=== PATIENT | male | born 1960 | race Caucasian/White ===

== ENCOUNTER 2019-03-21 11:01 | Observation (INO) ==
--- NOTE | 2019-03-07 10:07 | PAT Medication Instructions ---
Medication Instructions Date of Service March 07, 2019 Home Medications Medication Instructions Recorded diclofenac sodium 75 mg 75 mg PO BID PRN #60 tab 02/04/19 tablet,delayed release atorvastatin 20 mg tablet 20 mg PO QAM diclofenac sodium 75 mg tablet,delayed release 75 mg PO BID PRN lisinopril 10 mg tablet 10 mg PO QAM ASK your surgeon for instructions diclofenac sodium 75 mg tablet,delayed release 75 mg PO BID PRN DO NOT take the morning of surgery lisinopril 10 mg tablet 10 mg PO QAM Take morning of surgery With a small sip of water, OTHERWISE NOTHING TO EAT OR DRINK AFTER MIDNIGHT: atorvastatin 20 mg tablet 20 mg PO QAM Other Notes If you have any questions please call us at [phone] or [phone] or [phone] or [phone]
--- NOTE | 2019-03-07 10:21 | Anesthesiology Consultation ---
Date of Service March 07, 2019 Assessment & Plan (1) Encounter for pre-operative examination: Chart Review Chart Review: Pending: Refer to Additional Notes / Consult section (awaiting PAT testing) History Surgery Operation Date: 03/21/19 13:00 Proposed Procedures p Right Arthroplsty Unicompartment Versus - Rogers Bui MD s Total Knee Arthroplasty - Rogers Bui MD Height/Weight Height: 5 ft 10.5 in Weight: 82 kg Allergies Allergy/AdvReac Type Severity Reaction Status Date / Time No Known Allergies Allergy Verified 03/07/19 09:54 Medications Home Medications Medication Instructions Recorded Confirmed Last Taken atorvastatin 20 mg tablet 20 mg PO QAM 02/04/19 03/07/19 Unknown diclofenac sodium 75 mg 75 mg PO BID PRN #60 tab 02/04/19 03/07/19 Unknown tablet,delayed release lisinopril 10 mg tablet 10 mg PO QAM 02/04/19 03/07/19 Unknown Past Medical History Medical History Hypertension Osteoarthritis Exercise / Class Metabolic Activity II 4-5 Yardwork/Stairs/Walk up hill Past Family History Family History Father FHx: lung cancer Family/Other FHx: cancer Grandmother (Maternal) Family history of diabetes mellitus Past Surgical History Surgical History H/O excision of dermoid cyst nose Social History Smoking Status: Current every day smoker tobacco type: cigarettes Smoking cigarettes per day: 30 cigarettes x 30 years Do You Dip or Chew Tobacco: No Hx Alcohol Use: Yes Alcohol type: beer alcohol intake frequency: 3 or more drinks per day Hx Substance Use: No substance use type: does not use Physical Exam ENMT Mouth: + dental restorations Thyromental Distance: > or= 3.5 Finger Breadths Mallampati Class: II Neck normal visual inspection Respiratory normal respiratory effort Auscultation: lungs clear to auscultation bilaterally Cardiovascular Rate/Rhythm: regular rate and regular rhythm
--- NOTE | 2019-03-07 11:03 | XRay Report ---
XR chest Pre-admission PA/Lat HISTORY: 58 years-old Male pat preoperative exam. No acute chest complaints COMPARISON: None available TECHNIQUE: PA and lateral views of the chest FINDINGS: Cardiomediastinal and hilar silhouettes are within normal limits. There is no pneumothorax, pleural e ffusion, focal airspace consolidation or overt pulmonary edema. Lungs are mildly hyperinflated. The i nferior left costophrenic angle is partially excluded from the [id number] on the PA view. Bones of the chest appear grossly intact. IMPRESSION: No acute process. ACT 112: Negative or not required by law. The above report was generated using voice recognition software. It may contain grammatical, syntax o r spelling errors. Electronically signed by: Zion Rahman M.D. 03/07/2019 11:02 AM
[2019-03-07 12:44] LABS: Basophils # (auto) 0.06 K/uL (0-0.2); Basophils % (auto) 0.7 %; Eosinophils # (auto) 0.06 K/uL (0-0.5); Eosinophils % (auto) 0.7 %; Hematocrit (blood only) 42.3 % (42-52); Hemoglobin 14.8 g/dL (14.0-18.0); Lymphocytes # (auto) 1.77 K/uL (1.2-3.4); Lymphocytes % (auto) 21.4 %; Mean Corpuscular Hemoglobin 33.3 pg (25-34); Mean Corpuscular Volume 95.3 fL (80-100); Mean Platelet Volume 12.3 fL (7.4-10.4); Monocytes # (auto) 0.66 K/uL (0.11-0.59); Neutrophils # (auto) 5.74 K/uL (1.4-6.5); Neutrophils % (auto) 69.2 %; Platelet Count 160 K/uL (130-400); RDW Coefficient of Variation 13.2 % (11.5-14.5); RDW Standard Deviation 46.1 fL (36.4-46.3); Red Blood Count 4.44 M/uL (4.7-6.1); White Blood Count 8.29 K/uL (4.8-10.8)
[2019-03-07 12:47] LABS: INR 1.1 (0.9-1.1); Partial Thromboplastin Ratio 1.1; Partial Thromboplastin Time 29.1 Seconds (21.0-31.0); Prothrombin Time 10.8 Seconds (9.0-12.0)
[2019-03-07 13:03] LABS: BUN Creatinine Ratio 17.7 (10-20); Calcium 9.1 mg/dl (8.5-10.1); Creatinine Clr Calc Pharmacy 79.9 ml/min; Est GFR (African American) 88.8; Est GFR (Non-African American) 76.7; Potassium 5.3 mmol/L (3.5-5.1)
--- NOTE | 2019-03-07 16:02 | Electrocardiogram Report ---
Test Reason : Blood Pressure : / mmHG Vent. Rate : 098 BPM Atrial Rate : 098 BPM P-R Int : 142 ms QRS Dur : 082 ms QT Int : 322 ms P-R-T Axes : 076 081 063 degrees QTc Int : 411 ms Normal sinus rhythm Peaked T waves(consider ischemia,hyperkalemia,etc.) Otherwise normal ECG No previous ECGs available Confirmed by Rashad Edmond ([id number]) on 03/07/2019 4:02:28 PM Referred By: Rogers Bui Confirmed By:Rashad Edmond
[~2019-03-21 11:01] MED LIST: ACETAMINOPHEN 500 MG TAB PO SCH; BUPIVACAINE 0.5 % 5 MG/1 ML PF 10ML VIAL ONE; BUPIVACAINE LIPOSOME/PF 266 MG, BUPIVACAINE/EPINEPHRINE 50 ML, SODIUM CHLORIDE 0.9% 30 ... INFIL SCH; CEFAZOLIN 2000MG 2,000 MG/15 ML SYR IV SCH; FAMOTIDINE 20 MG TAB PO SCH; GABAPENTIN 600 MG DOSE PO SCH; LR 500ML BOLUS, THEN 15ML/HR IV SCH; LR 60ML/HR IV SCH; METOCLOPRAMIDE HCL 10 MG TABLET PO SCH; ROPIVACAINE 0.5% 5 MG/ML 30 ML VIAL ONE; SCOPOLAMINE 1.5 MG TDSY TD SCH; TRANEXAMIC ACID 1,000 MG **IV Intra-op IV SCH
[2019-03-21 11:52] LABS: BUN Creatinine Ratio 9.4 (10-20); Creatinine Clr Calc Pharmacy 81.4 ml/min; Est GFR (African American) 90.9; Est GFR (Non-African American) 78.4; Potassium 4.1 mmol/L (3.5-5.1)
[2019-03-21] MEDS ORDERED: MIDAZOLAM HCL 1 MG/ML 2ML VIAL ONE ×2 (12:41)
[2019-03-21] MEDS ORDERED: LIDOCAINE HCL 2% 2 ML VIAL/AMP(20MG/ML) INFIL ONE (12:41)
[2019-03-21] MEDS ORDERED: PROPOFOL IV EMULSION 10 MG/ML 20 ML VIAL IV ONE ×2 (12:41→14:56)
[2019-03-21] MEDS ORDERED: fentaNYL citrate 100 MCG/2 ML VIAL ONE ×2 (12:42→14:45)
[2019-03-21] MEDS ORDERED: BUPIVACAINE LIPOSOME 1.3% 266 MG/20 ML VIAL ONE (13:07)
[2019-03-21] MEDS ORDERED: SODIUM CHLORIDE 0.9% PF 50 ML VIAL ONE (13:07)
[2019-03-21] MEDS ORDERED: BUPIVACAINE/EPINEPHRINE 0.25% 1:200,000 30 ML VIAL ONE ×2 (13:07→13:12)
[2019-03-21] MEDS ORDERED: BACITRACIN INJ 50,000 UNIT VIAL ONE (13:08)
[2019-03-21] MEDS ORDERED: ATROPINE SULFATE 0.1 MG/ML 10ML SYR IV PRN (13:13)
[2019-03-21] MEDS ORDERED: ePHEDrine sulfate 50 MG/ML AMP IV PRN (13:13)
--- NOTE | 2019-03-21 13:32 | History & Physical Bridge Note ---
Date of Service March 21, 2019 History & Physical Bridge Note I have examined the patient, reviewed the History & Physical and in the interval since the performance of the History & Physical I have noted the following changes of clinical significance: no changes noted
--- NOTE | 2019-03-21 15:37 | Post Operative Brief Note ---
PG Immediate Post Op with CF Date of Surgery March 21, 2019 Pre & Post Diagnosis Operation Date: 03/21/19 13:00 Pre-Op Diagnosis: RIGHT KNEE DEGENERATIVE JOINT DISEASE W/KNEE PAIN Post-Op Diagnosis: RIGHT KNEE DEGENERATIVE JOINT DISEASE W/KNEE PAIN I identified the patient and participated in the time-out.: Yes Procedure Operation Date: 03/21/19 13:00 Actual Procedures p Right Arthroplasty Unicompartment Versus(Right) - Rogers Bui MD s Total Knee Arthroplasty - Rogers Bui MD Surgeon Rogers Bui MD Telesales Agent Karina, PAC Estimated Blood Loss 10 Findings Consistent with Post-Op Diagnosis Fluids 1800 cc Specimens Specimen Description: A. Right Knee bone and tissue Drains Earl Catheter Anesthesia Type Spinal MAC Complications none Disposition Accompanied Patient To Recovery: No Disposition: Recovery Room
--- NOTE | 2019-03-21 16:02 | XRay Report ---
XR knee RT 1 or 2V routine HISTORY: 58 years-old Male Surgical Post Op chronic right knee pain COMPARISON: Knee radiographs 02/04/2019 TECHNIQUE: 2 views the right knee FINDINGS: Medial compartment hemiarthroplasty changes of the right knee demonstrates satisfactory alignment. Th ere is no acute fracture or retained foreign body identified. Expected postsurgical soft tissue swell ing and deep tissue air about the right knee with anterior midline skin ck. Surgical drainage ca theter also noted. IMPRESSION: Expected postoperative changes of the knee with medial compartment hemiarthroplasty. ACT 112: Negative or not required by law. The above report was generated using voice recognition software. It may contain grammatical, syntax o r spelling errors. Electronically signed by: Zion Rahman M.D. 03/21/2019 4:01 PM
--- NOTE | 2019-03-21 17:28 | Operative Report ---
Post Operative Report Pre & Post Diagnosis Operation Date: 03/21/19 13:00 Pre-Op Diagnosis: RIGHT KNEE DEGENERATIVE JOINT DISEASE W/KNEE PAIN Post-Op Diagnosis: RIGHT KNEE DEGENERATIVE JOINT DISEASE W/KNEE PAIN I identified the patient and participated in the time-out.: Yes Procedure Operation Date: 03/21/19 13:00 Actual Procedures Right Knee Arthroplasty Ida Unicompartment (Right) - Rogers Bui MD Surgeon Rogers Bui MD Dump Truck Operator Karina, PAC Estimated Blood Loss 10 Findings Consistent with Post-Op Diagnosis Operative findings revealed advanced right knee medial compartment DJD with extensive grade 4 [id number]-dp-[id number] disease of the medial femoral condyle and medial tibial plateau. He had a moderate-sized joint effusion with a varus deformity to his knee. The lateral and patellofemoral compartments were very nicely preserved. The ACL was intact. Fluids 1800 cc. Specimens Right knee sent for pathology. Drains None. Anesthesia Type Spinal MAC Complications none Disposition Accompanied Patient To Recovery: No Disposition: Recovery Room Indications Patient is a 58-year-old gentleman has had a 2-year history of gradually progressive increasing right medial knee pain and discomfort. He is been through extensive conservative treatment clinic various medicines as well as injection which provided very temporary relief. X-rays showed advanced medial compartment arthritis. This is confirmed by MRI with extensive marrow changes the medial femoral condyle medial tibial plateau. The rest of his knee joint looked pretty well-preserved. He elected to see the right partial knee replacement. Description of Procedure Operative implants consist of: 1. Biomet Ida size medium femoral component. 2. Biomet Ida right medial size D tibial tray. 3. 5 mm mobile-bearing insert. Patient is taken to the operating room identified and placed on the operating table supine position protectors were properly padded. IV antibiotics were provided by anesthesia team. A spinal anesthetic been implemented holding area. Earl catheter was placed in sterile fashion. Right factor was then placed in the right lower extremities and prepped and draped in the usual sterile fashion. The right leg was elevated and exsanguinated with use of an Esmarch and turns placed at 300 mmHg. An anterior approach to the right knee was then performed through a longitudinal incision beginning at the superior pole of the patella and extending just medial to the tibial tubercle. Sharp dissection was carried out through subcutaneous tissue down to the extensor mechanism. The subcutaneous tissue was then mobilized circumferentially. A medial parapatellar arthrotomy incision was made. Some slight subperiosteal dissection was carried out medially taking great care to protect the MCL ligament. The fat pad was resected. I then examined the knee. The ACL was intact. The medial compartment showed advanced degenerative change. The lateral compartment and patellofemoral compartments are well preserved. I elected proceed with a partial knee replacement. The femur was then sized to a size medium. The external tibial and alignment jig was then placed in the interface the tibia and attached to the femoral spoon . Proximal tibial cut was made using the 40 implant. The tibia was then sized to a size D. Attention drawn the femur. The intramedullary canal was entered and the IM guide was placed. The template for the medium femoral component was placed and attached to the IM guide and the holes were drilled for the femoral component. Posterior cutting guide was placed in the posterior cut was made. The 0 spigot was used and the distal femur was milled. I then trialed the knee and the 5 feeler gauge fit well in flexion and the one in extension. Therefore, we took the floor spigot milled the distal femur and retry the knee again and the 5 feeler gauge fit appropriately in flexion extension. I like to use these implants. The distal femur was then prepared using the milling device. The posterior osteophyte cutting guide was placed in the posterior osteophyte was removed. The anterior femur was then prepared using the milling device. I used the cement drill to drill some holes in the distal femur for cement interdigitation. I irrigated the wound. The remnant of the medial meniscus was excised. The tibial tray was pinned in place and the toothbrush blade saw was used to create the keel for the tibial tray. I then irrigated the wound extensively. I then trialed the knee one more time and the knee was well balanced and the 5 feeler gauge fit appropriately in flexion extension. Elect to place these implants. All trial implants were removed. Single batch of Palacos G cement was mixed. A size the right medial tibial tray was cemented in place followed by a medium femoral component. All extraneous cement was removed. The 5 feeler gauge was placed the knee was brought out into about 30 degrees short full extension total cement hardened. Final cement check was then performed. Pericapsular tissues were then injected with 100 cc of combination of 20 cc of Exparel, 30 cc of normal saline, 50 cc of quarter percent Marcaine with epinephrine. The permanent insert was then placed. This is a 5 mm insert.. It was well balanced and tracked nicely. Attention was then drawn toward closing. Breath wound was once again irrigated. The tourniquet was let down for tourniquet time of 66 minutes. Hemostasis assured use electrocautery. Extensor mechanism closed with #1 Vicryl suture in a [id number]-[id number]-[id number] fashion subcutaneous tissue then closed with 2 Dexon suture in a buried interrupted fashion skin was closed skin ck. Leg was then cleaned dried a sterile dressing applied Xeroform, 4 x 4's, sterile cast padding, Gilbert bandage were applied. Patient then transferred to the recovery room in stable condition. Patient tolerated procedure well no complications. I attest to the content of the Intraoperative Record and any orders documented t herein. Any exceptions are noted below.
[2019-03-21] MEDS ORDERED: NALOXONE HCL 0.4 MG/1 ML VIAL/CARP IV PRN (17:31)
[2019-03-21] MEDS ORDERED: MAGNESIUM HYDROXIDE SUSP 30 ML UDC PO PRN (17:31)
[2019-03-21] MEDS ORDERED: METOCLOPRAMIDE HCL INJ 5 MG/ML 2 ML VIAL IV PRN (17:31)
[2019-03-21] MEDS ORDERED: ALUMINUM/MAGNESIUM SUSP 30 ML UDC PO PRN (17:31)
[2019-03-21] MEDS ORDERED: HYDROmorphone INJ 0.5 MG/0.5 ML SYR IV PRN (17:31)
[2019-03-21] MEDS ORDERED: TAMSULOSIN HCL 0.4 MG CAP PO PRN (17:31)
[2019-03-21] MEDS ORDERED: ONDANSETRON INJ 2 MG/ML 2 ML VIAL IV PRN (17:31)
[2019-03-21] MEDS ORDERED: chlordiazePOXIDE HCl 25 MG CAP PO PRN (17:31)
[2019-03-21] MEDS ORDERED: bisacodyL 10 MG SUPP PR PRN (17:31)
--- NOTE | 2019-03-21 17:41 | Anesthesiology Progress Note ---
Date of Service March 21, 2019 Anesthesia Post Procedure Vital Signs Vital Signs: Temp Pulse Pulse Resp BP BP Pulse Ox 03/21/19 17:01 37.1 C 98 H 15 122/77 98 03/21/19 16:50 90 15 120/69 99 03/21/19 16:40 95 H 16 125/76 99 03/21/19 16:30 94 H 12 127/75 100 03/21/19 16:20 96 H 15 124/72 100 03/21/19 16:10 99 H 13 123/71 100 03/21/19 16:00 100 H 24 119/83 100 03/21/19 15:50 93 H 20 113/68 100 03/21/19 15:44 36.5 C 96 H 26 H 112/65 100 03/21/19 11:43 37.5 C 117 H 20 160/94 H 97 Pain Intensity Lower Back: Pain Intensity: 3 Transfer of Care Handoff Completed per policy Notes Mental Status: alert / awake / arousable and participated in evaluation Patient Amnestic to Procedure: Yes Nausea / Vomiting: adequately controlled Pain: adequately controlled Airway Patency, RR, SpO2: stable & adequate BP & HR: stable & adequate Hydration State: stable & adequate Anesthetic Complications: no major complications apparent
[2019-03-21] MEDS: CHECK SCOPOLAMINE PATCH PLACEMENT SCH ×2 (18:58→23:58)
[2019-03-21] MEDS: KETOROLAC 30 MG/ML VIAL IV SCH ×2 (18:58→23:57)
[2019-03-21] MEDS: ASCORBIC ACID 500 MG TAB PO SCH (18:58)
[2019-03-21] MEDS ORDERED: SENNA 8.6 MG TAB PO SCH (21:00)
[2019-03-21] MEDS: ASPIRIN 81 MG ECTAB PO SCH (21:54)
[2019-03-21] MEDS: CEFAZOLIN 1000MG 1,000 MG/7.5 ML SYR IV SCH (21:54)
[2019-03-21] MEDS: DOCUSATE SODIUM 100 MG CAP PO SCH (21:54)
[2019-03-21] MEDS: ACETAMINOPHEN 500 MG TAB PO SCH (21:55)
[2019-03-21] MEDS: TRAMADOL HCL 50 MG TABLET PO PRN (21:56)
[2019-03-21] MEDS: SODIUM CHLORIDE 0.9% 1000ML 1,000 ML IV SCH (23:57)
[2019-03-22] MEDS: KETOROLAC 30 MG/ML VIAL IV SCH ×2 (05:28→11:16)
[2019-03-22] MEDS: CEFAZOLIN 1000MG 1,000 MG/7.5 ML SYR IV SCH (05:28)
[2019-03-22] MEDS: ACETAMINOPHEN 500 MG TAB PO SCH ×2 (05:28→13:41)
[2019-03-22] MEDS: SODIUM CHLORIDE 0.9% 1000ML 1,000 ML IV SCH (05:28)
--- NOTE | 2019-03-22 08:08 | Anesthesiology Progress Note ---
Date of Service March 22, 2019 Anesthesia Post Procedure Vital Signs Vital Signs: Temp Pulse Pulse Pulse Resp BP BP 03/22/19 07:57 36.7 C 81 18 129/77 03/22/19 03:20 36.6 C 90 16 124/76 03/21/19 23:15 36.7 C 91 H 18 136/84 03/21/19 19:30 36.7 C 101 H 16 123/72 03/21/19 18:40 36.4 C L 97 H 20 139/79 03/21/19 18:01 36.4 C L 94 H 20 137/84 03/21/19 17:31 36.7 C 79 20 130/79 03/21/19 17:01 37.1 C 98 H 15 122/77 03/21/19 16:50 90 15 120/69 03/21/19 16:40 95 H 16 125/76 03/21/19 16:30 94 H 12 127/75 03/21/19 16:20 96 H 15 124/72 03/21/19 16:10 99 H 13 123/71 03/21/19 16:00 100 H 24 119/83 03/21/19 15:50 93 H 20 113/68 03/21/19 15:44 36.5 C 96 H 26 H 112/65 03/21/19 11:43 37.5 C 117 H 20 160/94 H Pulse Ox 03/22/19 07:57 94 03/22/19 03:20 95 03/21/19 23:15 98 03/21/19 19:30 97 03/21/19 18:40 97 03/21/19 18:01 97 03/21/19 17:31 100 03/21/19 17:01 98 03/21/19 16:50 99 03/21/19 16:40 99 03/21/19 16:30 100 03/21/19 16:20 100 03/21/19 16:10 100 03/21/19 16:00 100 03/21/19 15:50 100 03/21/19 15:44 100 03/21/19 11:43 97 Pain Intensity Lower Back: Pain Intensity: 3 Right Knee: Pain Intensity: 2 Notes Mental Status: alert / awake / arousable Nausea / Vomiting: adequately controlled Pain: adequately controlled Airway Patency, RR, SpO2: stable & adequate BP & HR: stable & adequate Hydration State: stable & adequate Neuraxial Anesthesia: was administered and sensory block resolved Anesthetic Complications: no major complications apparent and Pt Satisfied with anesthetic care
[2019-03-22] MEDS: ASCORBIC ACID 500 MG TAB PO SCH (08:14)
[2019-03-22] MEDS: DOCUSATE SODIUM 100 MG CAP PO SCH (08:14)
[2019-03-22] MEDS: ASPIRIN 81 MG ECTAB PO SCH (08:15)
[2019-03-22] MEDS: TRAMADOL HCL 50 MG TABLET PO PRN (08:18)
[2019-03-22] MEDS ORDERED: FOLIC ACID 1 MG TAB PO SCH (09:00)
[2019-03-22] MEDS ORDERED: ATORVASTATIN 20 MG TAB PO SCH (09:00)
[2019-03-22] MEDS ORDERED: THIAMINE HCL 100 MG TAB PO SCH (09:00)
[2019-03-22] MEDS ORDERED: MULTIVITAMIN TAB PO SCH (09:00)
--- NOTE | 2019-03-22 11:38 | Progress Note ---
DATE: 03/22/2019 SUBJECTIVE: 58-year-old gentleman postop day 1 from a right partial knee replacement. He is doing well. Pain is controlled. Rates his pain as a 3/10 at worst. No chest pain or shortness of breath. Not feeling dizzy or lightheaded. OBJECTIVE: VITAL SIGNS: Temperature is 36.7. Vital signs stable. GENERAL: Shows a pleasant, middle-aged male. He is sitting on bed, looks entirely comfortable. LUNGS: Clear to auscultation. HEART: Has a regular rate and rhythm. ABDOMEN: Soft, nontender, nondistended. EXTREMITIES: Grossly neurovascularly intact except as follows: Examination of the right lower extremity reveals the dressing to be clean, dry and intact. Leg is well aligned. He can dorsiflex and plantarflex his foot appropriately. He can do a good straight leg raise. ASSESSMENT: 58-year-old gentleman postop day 1 from right partial knee replacement, doing well. Pain is controlled. He is neurologically intact. PLAN: 1. DVT prophylaxis including thigh-high TEDs, SCDs, and aspirin for 1 month. 2. PT/OT. He can fully weightbear as tolerated right leg. 3. Pain control, doing well with current pain regimen. 4. Disposition: Plan is to discharge him to home. He is going to stay with his mom and have some home health.
--- NOTE | 2019-03-23 16:43 | Discharge Summary ---
ADMITTING PHYSICIAN AND SURGEON: Dr. Rogers Bui. ADMITTING DIAGNOSIS: Right knee degenerative joint disease. SURGERY PERFORMED: Right knee unicompartmental arthroplasty. SECONDARY DIAGNOSES: Hypertension and significant alcohol use. CONSULTS: None obtained. HISTORY AND PHYSICAL EXAMINATION: Well documented in the patient's chart. HOSPITAL COURSE: The patient was admitted on 03/21/2019 underwent a partial knee replacement, tolerated the procedure well. There were no complications. He was transferred to the PACU and later to the orthopedic floor for further care. He was given Ancef for antibiotic prophylaxis, BOO stockings, SCDs and aspirin for DVT prophylaxis. Vital signs were monitored during his hospital stay and remained stable. He did not require any blood transfusions. There were no complications. By postoperative day 1, he was tolerating a regular diet, pain was controlled with oral pain medicine. He was participating in physical therapy. Postop day 1, he was discharged home, set up with home health services, given printed discharge instructions as well as new prescriptions for extra strength Tylenol, aspirin and tramadol. Continue his home medicines. Continue physical therapy, weightbearing as tolerated, BOO stockings. Follow up approximately 2 weeks postop or sooner if there are any problems or concerns.
== END 2019-03-22 14:39 | disposition home health service (06) ==
LOC: ASU 11:01 → 3E 15:41 → INTOOBSV 15:41